=== PATIENT | female | born 1975 | race Hispanic/Latino ===

== ENCOUNTER 2024-11-24 12:32 | Emergency (ER) | payer OTHER ==
[~2024-11-24] VITALS: Ht 152.4 cm; Wt 65.3 kg
--- NOTE | 2024-11-24 13:35 | EKG ---
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
[2024-11-24 14:00] LABS: IMMATURE GRANULOCYTE ABSOLUTE 0.01 K/uL (0-1); NUCLEATED RED BLOOD CELLS 0.0 % (0.0-0.19); PLATELET COUNT (AUTO) 310 K/uL (130-400); RED BLOOD CELL COUNT(AUTO) 4.93 MIL/uL (4.00-5.50); RED CELL DISTRIBUTION WIDTH 12.2 % (11.0-15.5); WHITE BLOOD COUNT (AUTO) 5.9 K/uL (4.8-10.8)
[2024-11-24 14:11] LABS: CREATININE 0.5 mg/dL (0.5-1.0); GLOMERULAR FILTR. RATE CALC 113.0 mL/min (>90); GLUCOSE,RANDOM 129.0 mg/dL (70-105); SODIUM SERUM 145.0 mmol/L (136-145); UREA NITROGEN, BLOOD 14.0 mg/dL (7-18)
[2024-11-24] MEDS: 0.9%NACL 1000ML 1,000 ML IV ONE (14:42)
--- NOTE | 2024-11-24 14:55 | ERN ---
General Chief Complaint: Anxiety/Panic Attack Stated Complaint: ANXIETY Time Seen by MD: 12:34 Time Seen by Midlevel: 12:34 Source: patient History of Present Illness Initial Comments 49-year-old female presents to the ER for evaluation of palpitations and generalized anxiety following ingestion of THC gummy. Patient states this was her 1st time taking one. Allergies: Coded Allergies: No Known Allergies (Unverified Allergy, Unknown, 11/24/24) Past Medical History Past Medical History: Anxiety, Depression, Hypertension Past Surgical History: None ROS Dictation CONSTITUTIONAL: Negative except for HPI HEAD/FACE: Negative except for HPI EENT: Negative except for HPI RESPIRATORY: Negative except for HPI GASTROINTESTINAL/ABDOMINAL: Negative except for HPI GENITOURINARY: Negative except for HPI MUSCULOSKELETAL: Negative except for HPI INTEGUMENTARY: Negative except for HPI NEUROLOGICAL/PSYCH: Negative except for HPI HEMATOLOGIC/LYMPHATIC: Negative except for HPI All Systems Negative, Except as noted above. 13 point review of systems assessed and all negative except for above. Physical Exam Physical Exam Dictation Vital Signs reviewed General Appearance: Alert, oriented x 3, no acute distress, well developed, nourished. Head and Face: non-traumatic. Eyes: PERRL, pink conjunctivas, eyelid no trauma, anterior chamber with arcus senilis. Ears: Pinnas intact and no signs of trauma or erythema ear canals clear and no discharge TM no erythema Nose: No discharge, no bleeding. Oropharynx: Mouth normal, tongue pink, pharynx clear,no erythema, tonsils no exudates, no abscesses noted, mucous membrane moist Neck: Supple, non-tender, no thyromegaly, no masses, no JVD, no bruits Breast:Deferred Chest:No tenderness, no crepitus, no paradoxical movement, no retractions Lungs:Clear, well-ventilated, symmetric, no rales, no wheezing, no rhonchi, no stridor, good breath sounds bilaterally Heart: Regular rate, regular rhythm, no murmur, no gallops Vascular: no peripheral edema, Abdomen: Soft, positive bowel sounds, nondistended, no guarding, nontender, no rebound, no masses no hepatomegaly, no splenomegaly, no Marsh's sign, no hernias. Rectal: Deferred Genital: Deferred Neurological: Normal speech, motor function intact, sensory function intact Musculoskeletal: Neck nontender, full range of motion, back nontender, full range of motion, Extremities: nontender, full range of motion Skin: Color pink, dry, no turgor, no rash, no lacerations, no abrasions, no contusions. Lymphatic: Deferred Results Laboratory and Microbiology Lab and Micro Result Laboratory Tests Test 11/24/24 13:55 White Blood Count 5.9 K/uL (4.8-10.8) Red Blood Count 4.93 MIL/uL (4.00-5.50) Hemoglobin 14.2 g/dL (12.0-16.0) Hematocrit 41.4 % (36-48) Mean Corpuscular Volume 84.0 fL (79-99) Mean Corpuscular Hemoglobin 28.8 pg (27.0-33.0) Mean Corpuscular Hemoglobin Concent 34.3 g/dL (32.0-36.0) Red Cell Distribution Width 12.2 % (11.0-15.5) Platelet Count 310 K/uL (130-400) Mean Platelet Volume 9.0 fL (7.5-10.5) Immature Granulocyte % (Auto) 0.2 % (0-1) Neutrophils (%) (Auto) 76.4 % (40.0-77.0) Lymphocytes (%) (Auto) 16.8 % (21.0-51.0) L Monocytes (%) (Auto) 5.4 % (3.0-13.0) Eosinophils (%) (Auto) 0.7 % (0.0-8.0) Basophils (%) (Auto) 0.5 % (0.0-5.0) Neutrophils # (Auto) 4.5 K/uL (1.8-7.7) Lymphocytes # (Auto) 1.0 K/uL (1.0-4.8) Monocytes # (Auto) 0.3 K/uL (0.1-1.0) Eosinophils # (Auto) 0.04 K/uL (0.00-0.70) Basophils # (Auto) 0.03 K/uL (0.00-0.20) Absolute Immature Granulocyte (auto 0.01 K/uL (0-1) Nucleated Red Blood Cells 0.0 % (0.0-0.19) Sodium Level 145 mmol/L (136-145) Potassium Level 3.4 mmol/L (3.5-5.1) L Chloride Level 101 mmol/L (101-111) Carbon Dioxide Level 32 mmol/L (21-32) Blood Urea Nitrogen 14 mg/dL (7-18) Creatinine 0.5 mg/dL (0.5-1.0) Glomerular Filtration Rate Calc 113 mL/min (>90) Random Glucose 129 mg/dL (70-105) H Total Calcium 9.3 mg/dL (8.5-10.1) Troponin I High Sensitivity < 4 ng/L (4-50) L Labs Reviewed?: Yes MDM MDM: Differential diagnosis: Anxiety, medication reaction, ACS There are no social concerns with this patient. Prescription drug management Prescriptions will include: None Medical management and examination interpretation discussions were had by me with other qualified healthcare professionals as indicated for the patient's care. ED Course Orders Procedure Category Date Status Time 12 Lead Ekg Tracing- EKG 11/24/24 Complete Technical 13:28 Cbc With Differential LAB 11/24/24 Complete 13:28 Basic Metabolic Panel LAB 11/24/24 Complete 13:28 Troponin I High LAB 11/24/24 Complete Sensitivity 13:28 0.9%Nacl 1000ml (Ns PHA 11/24/24 Complete 1000ml) 14:30 Current Medications Medications (Trade) Dose Ordered Sig/Oralia Route PRN Reason Start Time Stop Time Status Last Admin Dose Admin Sodium Chloride 1,000 ml @ 0 mls/hr ONCE ONCE IV 11/24/24 14:30 11/24/24 14:31 DC 11/24/24 14:42 Vital Signs Date Time Temp Pulse Resp B/P (MAP) Pulse Ox O2 Delivery O2 Flow Rate FiO2 11/24/24 13:57 98.2 100 23 147/101 98 Room Air* 0 21 11/24/24 12:34 98.1 118 20 150/104 99 Room Air DX & DISP Disposition: Discharge Departure Impression: Primary Impression: Medication reaction Additional Impression: Anxiety reaction Condition: Stable Additional Instructions: Blood work today is unremarkable. Your EKG shows no evidence of a heart attack. Your symptoms today are most likely related to the THC gummy you ingested. Follow up with your primary care doctor in 2-3 days for repeat evaluation. Referrals: SELF,REFERRAL (PCP) Time of Disposition: 14:52 I have reviewed the case, and I agree with, Diagnosis and Plan I performed the substantive portion of the visit. I have reviewed and personally made and approve the management plan that is documented in the note by myself or the BUDDY. I acknowledge for responsibility for the patient's management plan. SALINAS MCCANN PAC Nov 24, 2024 14:55
[2024-11-24 15:55] VITALS: BP 127/77; PULSE 67; RESP 16; TEMP 98.2; O2SAT 99
== END 2024-11-24 15:56 | disposition home or self-care (01) ==
LOC: EDH 12:32
DX: F41.1 Generalized anxiety disorder (principal); R00.2 Palpitations; T40.715A Adverse effect of cannabis, initial encounter; I10 Essential (primary) hypertension; Y92.89 Other specified places as the place of occurrence of the external cause
CPT/HCPCS: 99284; 96360; 84484; 80048; 85025; 36415; 93005; J7030